=== PATIENT | female | born 1990 | race Caucasian/White ===

== ENCOUNTER 2018-08-03 05:46 | Emergency (ER) | payer MEDICAID ==
[~2018-08-03] VITALS: Ht 157.5 cm; Wt 61.9 kg
[2018-08-03 05:57] VITALS: BP 141/88
== END 2018-08-03 06:42 | disposition left against medical advice (07) ==
LOC: ER 05:47
DX: A64 Unspecified sexually transmitted disease (principal); Z53.21 Procedure and treatment not carried out due to patient leaving prior to being seen by health care provider

== ENCOUNTER 2018-08-24 14:25 | Emergency (ER) | payer MEDICAID ==
[~2018-08-24] VITALS: Ht 160 cm; Wt 60.5 kg
[2018-08-24 14:42] VITALS: BP 116/77
[2018-08-24] MEDS ORDERED: ibuprofen tablet 400 MG TABLET PO ONE (15:35)
== END 2018-08-24 15:49 | disposition home or self-care (01) ==
LOC: ER 14:26
DX: S30.0XXA Contusion of lower back and pelvis, initial encounter (principal); T74.21XA Adult sexual abuse, confirmed, initial encounter; J45.909 Unspecified asthma, uncomplicated; F17.200 Nicotine dependence, unspecified, uncomplicated; F12.90 Cannabis use, unspecified, uncomplicated; Y04.8XXA Assault by other bodily force, initial encounter; Y93.89 Activity, other specified; Y92.89 Other specified places as the place of occurrence of the external cause; Y99.8 Other external cause status
CPT/HCPCS: 99284